=== PATIENT | male | born 1940 | race Caucasian/White ===

== ENCOUNTER → 2017-03-08 | Outpatient (CLI) | payer OTHER, BC ==
[~2017-03-08] MED LIST: ATOR10TA82 PO; COEN1CAP7 PO; CYAN100020 PO; FERR27TA5 PO; FLAX10007 PO; LOSA100T2 PO; MAGN250T22 PO; MULT-506 PO; POTA8CAP6 PO
[2017-03-08 07:58] LABS: BASO % 0.3 %; BASO ABS # 0.01 K/uL (0-0.2); COMPLETE YES; EOS % 4.2 %; HEMATOCRIT 39.9 % (42-52); IG% 0.3 %; LYMPH % 20.8 %; LYMPH ABS # 0.75 K/uL (1.2-3.4); MEAN CELL VOLUME 92.4 fL (80-100); MEAN CORPUSCULAR HEMOGLOBIN 30.6 pg (25-34); MEAN CORPUSCULAR HGB CONC 33.1 g/dl (32-36); MEAN PLATELET VOLUME 11.1 fL (7.4-10.4); MONO % 13.9 %; NEUT % 60.5 %; PLATELET COUNT 131 K/uL (130-400); RED BLOOD COUNT 4.32 M/uL (4.7-6.1)
[2017-03-08 08:29] LABS: ALT/SGPT 27 U/L (12-78); BLOOD UREA NITROGEN 23 mg/dl (7-18); BUN/CREATININE RATIO 23.9 (10-20); C-REACTIVE PROTEIN < 0.29 mg/dl (0-0.29); CARBON DIOXIDE 33 mmol/L (21-32); CHLORIDE 104 mmol/L (98-107); CHOLESTEROL 156 mg/dl (0-200); CREATININE 0.97 mg/dl (0.60-1.40); GLUCOSE 85 mg/dl (70-99); POTASSIUM 3.6 mmol/L (3.5-5.1); SODIUM 142 mmol/L (136-145); TRIGLYCERIDES 45 mg/dl (0-150); VERY LOW DENSITY LIPOPROT CALC 9 mg/dl
[2017-03-08 08:30] LABS: ALB/GLOB RATIO 1.3 (0.9-2); ALKALINE PHOSPHATASE 68 U/L (45-117); AST/SGOT 22 U/L (15-37); CHOLESTEROL/HDL RATIO 2.6; HDL CHOLESTEROL 61 mg/dl; LDL CHOLESTEROL CALCULATED 86 mg/dl
[2017-03-08 08:44] LABS: CALCIUM 8.9 mg/dl (8.5-10.1)
[2017-03-08 08:55] LABS: ESTIMATED AVERAGE GLUCOSE 114 mg/dl; HA1C FLAG Normal (Normal)
== END | disposition home or self-care (01) ==
LOC: C.LAB 06:40
PROVIDERS: ATTEND Family Medicine
DX: E78.5 Hyperlipidemia, unspecified (principal); Z12.5 Encounter for screening for malignant neoplasm of prostate; R73.02 Impaired glucose tolerance (oral)

== ENCOUNTER → 2017-03-26 | Day surgery (SDC) | payer OTHER, BC ==
[2017-03-20 08:21] VITALS: Ht 180.3 cm; Wt 72.7 kg
[~2017-03-26] VITALS: Ht 180.3 cm; Wt 72.7 kg
[~2017-03-26] MED LIST changes: +LIDOCAINE HCL 2% 2 ML VIAL (20MG/ML) ONE; +MIDAZOLAM HCL 1 MG/ML 2ML VIAL ONE; +ONDANSETRON INJ 2 MG/ML 2 ML VIAL ONE; +PROPOFOL IV EMULSION 10 MG/ML 20 ML VIAL IV ONE; +SODIUM CHLORIDE 0.9% 500ML 500 ML IV ONE
--- NOTE | 2017-03-26 11:13 | Endo History and Physical ---
History & Physical Date of Service: March 26, 2017. Chief Complaint: Screening Referring Physician: Luisito Truong History of Present Illness 76 yo CM who presents for screening colonoscopy. Past Surgical History Hx Cardiac Surgery: No Hx Internal Defibrillator: No Hx Pacemaker: No Hx Abdominal Surgery: No Hx of Implantable Prosthesis: No Hx Post-Op Nausea and Vomiting: No Hx Cancer Surgery: No Hx Thoracic Surgery: No Hx Orthopedic: No Hx Urinary Tract Surgery: No Family History IBD Social History Smoking Status: Never Smoker Hx Substance Use: No Hx Alcohol Use: No Allergies Coded Allergies: NO KNOWN DRUG ALLERGIES (Verified Allergy, Unknown, ., 03/20/17) Prednisone (Verified Allergy, Unknown, ELEVATED BP, HIVES, 03/20/17) Current Medications Reported Home Medications Medications Dose Route/Sig Max Daily Dose Days Date Category Multivitamin (Multivitamins) Tab 1 Tab PO QAM 03/20/17 Reported Coq10 (Coenzyme Q10 (Ubidecarenone)) 200 Mg Cap 1 Cap PO Q2D 03/20/17 Reported Magnesium (Magnesium Oxide) 250 Mg Tab 1 Tab PO 3XWK 03/20/17 Reported Flax Seed Oil (Flaxseed (Linseed)) 1,000 Mg Cap 1 Cap PO QAM 03/20/17 Reported Iron (Ferrous Gluconate) 27 Mg Tab 1 Tab PO QAM 03/20/17 Reported Vitamin B12 (Cyanocobalamin) 1,000 Mcg Tab 1 Tab PO QAM 03/20/17 Reported Klor-Con Ext Rel (Potassium Chloride) 8 Meq Tabcr 8 Meq PO Q2D 03/20/17 Reported Hyzaar (Losartan Potassium & Hydrochlo) 1 Tab Tab 1 Tab PO QAM 90 03/20/17 Reported Lipitor (Atorvastatin Calcium) 10 Mg Tab 10 Mg PO Q2D 03/20/17 Reported Vital Signs Weight (Kilograms): 72.73 Height (Feet): 5 Height (Inches): 11 Date Time Temp Pulse Resp B/P Pulse Ox O2 Delivery O2 Flow Rate FiO2 03/26/17 11:05 36.7 72 20 189/89 98 Room Air Physical Exam General Appearance: WD/WN, no apparent distress Respiratory/Chest: Auscultation: breath sounds normal Cardiovascular: Heart Auscultation: RRR Abdomen: Bowel Sounds: normal Inspection & Palpation: soft, non-distended, no tenderness, guarding & rebound Assessment and Plan Assessment: 76 yo CM who presents for screening colonoscopy. Plan: Proceed with colonoscopy.
--- NOTE | 2017-03-26 11:50 | Discharge Instructions ---
Endoscopy Patient Instructions Date / Procedure(s) Performed March 26, 2017. Colonoscopy Allergy Information Coded Allergies: NO KNOWN DRUG ALLERGIES (Verified Allergy, Unknown, ., 03/20/17) Prednisone (Verified Allergy, Unknown, ELEVATED BP, HIVES, 03/20/17) Discharge Date / Findings March 26, 2017. Diverticulosis Internal hemorrhoids Medication Instructions OK to resume all medications today as prescribed Reported Home Medications Medications Dose Route/Sig Max Daily Dose Days Date Category Multivitamin (Multivitamins) Tab 1 Tab PO QAM 03/20/17 Reported Coq10 (Coenzyme Q10 (Ubidecarenone)) 200 Mg Cap 1 Cap PO Q2D 03/20/17 Reported Magnesium (Magnesium Oxide) 250 Mg Tab 1 Tab PO 3XWK 03/20/17 Reported Flax Seed Oil (Flaxseed (Linseed)) 1,000 Mg Cap 1 Cap PO QAM 03/20/17 Reported Iron (Ferrous Gluconate) 27 Mg Tab 1 Tab PO QAM 03/20/17 Reported Vitamin B12 (Cyanocobalamin) 1,000 Mcg Tab 1 Tab PO QAM 03/20/17 Reported Klor-Con Ext Rel (Potassium Chloride) 8 Meq Tabcr 8 Meq PO Q2D 03/20/17 Reported Hyzaar (Losartan Potassium & Hydrochlo) 1 Tab Tab 1 Tab PO QAM 90 03/20/17 Reported Lipitor (Atorvastatin Calcium) 10 Mg Tab 10 Mg PO Q2D 03/20/17 Reported Provider Instructions Activity Restrictions - No exercising or heavy lifting for 24 hours. - Do not drink alcohol the day of the procedure. - Do not drive a car or operate machinery until the day after the procedure. - Do not make any important decisions or sign important papers in 24 hours after the procedure. Following Day: - Return to full activity which may include returning to work/school. Diet Start your diet with liquids and light foods (jello, soup, juice, toast). Then eat your usual diet if not nauseated. Treatment For Common After Affects For mild abdominal pain, bloating, or excessive gas: - Rest - Eat lightly - Lie on right side Follow-Up Information Follow-up with Luisito Truong as scheduled Anesthesia Information What You Should Know You have had a procedure that required some medicine to reduce anxiety and discomfort. This treatment is called moderate sedation. After receiving the treatment, you may be sleepy, but you will be able to breathe on your own. The effects of the treatment may last for several hours. Follow these instructions along with Activity/Diet recommendations noted above: * Do NOT do anything where dizziness or clumsiness would be dangerous. * Rest quietly at home today, then you can be up and about tomorrow. * Have a responsible person stay with you the rest of today. * You may have had an I.V. today. If so, you may take the dressing off later today. Recommendations Call your doctor if: * Trouble breathing * Continuous vomiting for more than 24 hours * Temperature above 101 degrees * Severe abdominal pain or bloating * Pain not relieved by pain medicine ordered * There is increased drainage or redness from any incision * A large amount of rectal bleeding greater than 2-3 tablespoons. (If you had a polyp/s removed or have hemorrhoids, a small amount of blood - from the rectum is to be expected.) * You have any unanswered questions or concerns. IN THE EVENT OF A SERIOUS EMERGENCY, GO TO THE NEAREST EMERGENCY ROOM Your discharge instructions were prepared by provider Mono Cummings. Patient Instructions Signature Page Barrera Vasquez Patient (or Guardian) Signature/Date: I have read and understand the instructions given to me by my caregivers. Caregiver/RN/Doctor Signature/Date: The above-named patient and/or guardian has received patient instructions on this date. + Original Patient Signature Page (only) stays with chart. Please make copy for patient.
--- NOTE | 2017-03-26 12:11 | GI REPORT ---
Procedure Date: 03/26/2017 11:21 AM THIS REPORT HAS BEEN AMENDED Addendum Number: 1 Addendum Date: 03/26/2017 1:20:46 PM No specimens were obtained during this procedure, and therefore, no pathology is pending. No repeat colonoscopy secondary to patient's age and lack of adenomas. Procedure: Colonoscopy Indications: Screening for colorectal malignant neoplasm Medicines: Monitored Anesthesia Care Complications: No immediate complications. Estimated Blood Loss: Estimated blood loss: none. Procedure: Pre-Anesthesia Assessment: - Prior to the procedure, a History and Physical was performed, and patient medications and allergies were reviewed. The patient's tolerance of previous anesthesia was also reviewed. The risks and benefits of the procedure and the sedation options and risks were discussed with the patient. All questions were answered, and informed consent was obtained. Prior Anticoagulants: The patient has taken no previous anticoagulant or antiplatelet agents. ASA Grade Assessment: III - A patient with severe systemic disease. After reviewing the risks and benefits, the patient was deemed in satisfactory condition to undergo the procedure. After I obtained informed consent, the scope was passed under direct vision. Throughout the procedure, the patient's blood pressure, pulse, and oxygen saturations were monitored continuously. The Scope was introduced through the anus and advanced to the terminal ileum. The colonoscopy was performed without difficulty. The patient tolerated the procedure well. The quality of the bowel preparation was good. The terminal ileum, ileocecal valve, appendiceal orifice, and rectum were photographed. Findings: Multiple small-mouthed diverticula were found in the sigmoid colon. Non-bleeding internal hemorrhoids were found during retroflexion. The hemorrhoids were small. Impression: - Diverticulosis in the sigmoid colon. - Non-bleeding internal hemorrhoids. - No specimens collected. Recommendation: - Resume previous diet. - Continue present medications. - Repeat colonoscopy for surveillance based on pathology results. - Return to primary care physician as previously scheduled. Monoandreina Cummings, 03/26/2017 12:09:52 PM This report has been signed electronically. Note Initiated On: 03/26/2017 11:21 AM I attest to the content of the Intraoperative Record and orders documented therein, exceptions below Mono Carlson Emiliano, DO 03/26/2017 1:21:33 PM This report has been signed electronically.
[2017-03-26 12:40] VITALS: BP 123/62; PULSE 48; O2SAT 98
--- NOTE | 2017-03-26 12:54 | Anesthesiology Progress Note ---
Anesthesia Post Op Note Date & Time March 26, 2017 at 12:54 Vital Signs Vital Signs Past 12 Hours Date Time Temp Pulse Resp B/P Pulse Ox O2 Delivery O2 Flow Rate FiO2 03/26/17 12:25 51 20 105/52 98 Room Air 03/26/17 12:16 47 20 98/45 95 Room Air 03/26/17 12:12 56 20 90/46 95 Room Air 03/26/17 11:05 36.7 72 20 189/89 98 Room Air Notes Mental Status: alert / awake / arousable, participated in evaluation Pt Amnestic to Procedure: Yes Nausea / Vomiting: adequately controlled Pain: adequately controlled Airway Patency, RR, SpO2: stable & adequate BP & HR: stable & adequate Hydration State: stable & adequate Anesthetic Complications: no major complications apparent
== END | disposition home or self-care (01) ==
LOC: C.GI 10:34
PROVIDERS: ATTEND Internal Medicine
DX: Z12.11 Encounter for screening for malignant neoplasm of colon (principal); K57.30 Diverticulosis of large intestine without perforation or abscess without bleeding; K64.8 Other hemorrhoids

== ENCOUNTER → 2017-08-01 | Outpatient (CLI) | payer OTHER, BC ==
[~2017-08-01] MED LIST changes: -ATOR10TA82 PO; +ATOR10TA88 PO; -LIDOCAINE HCL 2% 2 ML VIAL (20MG/ML) ONE; -MIDAZOLAM HCL 1 MG/ML 2ML VIAL ONE; -ONDANSETRON INJ 2 MG/ML 2 ML VIAL ONE; -PROPOFOL IV EMULSION 10 MG/ML 20 ML VIAL IV ONE; -SODIUM CHLORIDE 0.9% 500ML 500 ML IV ONE
[2017-08-01 09:42] LABS: BASO % 0.4 %; BASO ABS # 0.02 K/uL (0-0.2); COMPLETE YES; EOS % 3.7 %; HEMATOCRIT 40.8 % (42-52); IG% 0.2 %; LYMPH % 18.3 %; LYMPH ABS # 0.95 K/uL (1.2-3.4); MEAN CELL VOLUME 90.5 fL (80-100); MEAN CORPUSCULAR HEMOGLOBIN 30.4 pg (25-34); MEAN CORPUSCULAR HGB CONC 33.6 g/dl (32-36); MEAN PLATELET VOLUME 11.8 fL (7.4-10.4); MONO % 13.7 %; NEUT % 63.7 %; PLATELET COUNT 191 K/uL (130-400); RED BLOOD COUNT 4.51 M/uL (4.7-6.1)
[2017-08-01 10:03] LABS: ALB/GLOB RATIO 1.1 (0.9-2); ALKALINE PHOSPHATASE 78 U/L (45-117); ALT/SGPT 23 U/L (12-78); AST/SGOT 17 U/L (15-37); BLOOD UREA NITROGEN 21 mg/dl (7-18); BUN/CREATININE RATIO 23.3 (10-20); CALCIUM 9.2 mg/dl (8.5-10.1); CARBON DIOXIDE 31 mmol/L (21-32); CHLORIDE 104 mmol/L (98-107); CHOLESTEROL 139 mg/dl (0-200); CREATININE 0.92 mg/dl (0.60-1.40); GLUCOSE 92 mg/dl (70-99); POTASSIUM 3.7 mmol/L (3.5-5.1); SODIUM 141 mmol/L (136-145); TRIGLYCERIDES 62 mg/dl (0-150); VERY LOW DENSITY LIPOPROT CALC 12 mg/dl
[2017-08-01 10:12] LABS: CHOLESTEROL/HDL RATIO 2.7; HDL CHOLESTEROL 51 mg/dl; LDL CHOLESTEROL CALCULATED 76 mg/dl; TOTAL IRON BINDING CAPACITY 286 mcg/dl (250-450); URIC ACID 2.1 mg/dl (2.6-7.2)
[2017-08-01 11:13] LABS: ESTIMATED AVERAGE GLUCOSE 117 mg/dl; HA1C FLAG Normal (Normal)
== END | disposition home or self-care (01) ==
LOC: C.LAB 07:00
PROVIDERS: ATTEND Family Medicine
DX: R73.09 Other abnormal glucose (principal); E55.9 Vitamin D deficiency, unspecified; D51.9 Vitamin B12 deficiency anemia, unspecified; E78.9 Disorder of lipoprotein metabolism, unspecified; R53.83 Other fatigue

== ENCOUNTER → 2018-02-13 | Outpatient (CLI) | payer OTHER, BC ==
[~2018-02-13] MED LIST changes: +ATOR10TA82 PO; -ATOR10TA88 PO
[2018-02-13 09:37] LABS: BASO % 0.4 %; BASO ABS # 0.02 K/uL (0-0.2); EOS % 4.8 %; EOS ABS # 0.22 K/uL (0-0.5); HEMATOCRIT 39.6 % (42-52); HEMOGLOBIN 13.4 g/dL (14.0-18.0); IG# 0.01 K/uL (0.00-0.02); LYMPH % 22.4 %; LYMPH ABS # 1.02 K/uL (1.2-3.4); MEAN CELL VOLUME 91.9 fL (80-100); MEAN CORPUSCULAR HEMOGLOBIN 31.1 pg (25-34); MEAN CORPUSCULAR HGB CONC 33.8 g/dl (32-36); MEAN PLATELET VOLUME 12.6 fL (7.4-10.4); MONO % 10.7 %; MONO ABS # 0.49 K/uL (0.11-0.59); NEUT % 61.5 %; PLATELET COUNT 131 K/uL (130-400); RED CELL DISTRIBUTION WIDTH CV 12.9 % (11.5-14.5); RED CELL DISTRIBUTION WIDTH SD 43.3 fL (36.4-46.3); WHITE BLOOD COUNT 4.56 K/uL (4.8-10.8)
[2018-02-13 09:55] LABS: HEMOGLOBIN A1C 5.7 % (4.5-5.6)
[2018-02-13 10:00] LABS: ALBUMIN 3.9 gm/dl (3.4-5.0); ALT/SGPT 33 U/L (12-78); AST/SGOT 22 U/L (15-37); BLOOD UREA NITROGEN 24 mg/dl (7-18); CARBON DIOXIDE 32 mmol/L (21-32); CHOLESTEROL 141 mg/dl (0-200); CREATININE 0.99 mg/dl (0.60-1.40); GLUCOSE 89 mg/dl (70-99); LDL CHOLESTEROL CALCULATED 71 mg/dl; POTASSIUM 3.7 mmol/L (3.5-5.1); SODIUM 137 mmol/L (136-145)
[2018-02-13 10:11] LABS: ALKALINE PHOSPHATASE 75 U/L (45-117); TRANSFERRIN 241 mg/dl (200-360); URIC ACID 2.2 mg/dl (2.6-7.2)
== END | disposition home or self-care (01) ==
LOC: C.LAB 07:11
PROVIDERS: ATTEND Family Medicine
DX: E88.81 Metabolic syndrome and other insulin resistance (principal); E55.9 Vitamin D deficiency, unspecified; D51.9 Vitamin B12 deficiency anemia, unspecified; E78.9 Disorder of lipoprotein metabolism, unspecified; R53.83 Other fatigue

== ENCOUNTER → 2018-06-10 | Outpatient (CLI) | payer OTHER, BC ==
--- NOTE | 2018-06-10 10:43 | DIAGNOSTIC IMAGING REPORT ---
MRI OF THE RIGHT KNEE WITHOUT CONTRAST CLINICAL HISTORY: Medial right knee pain. Evaluate for meniscal tear. COMPARISON STUDY: Right knee radiograph April 22, 2018. TECHNIQUE: Utilizing a 1.5 Liya magnet and dedicated coil, multiplanar, multiecho imaging of the right knee was performed without intravenous or intraarticular contrast. FINDINGS: Alignment of the right knee is anatomic. Extensor mechanism is intact. No marrow replacement is present. Note is made of a moderate to large right knee joint effusion. The cruciate and collateral ligaments are intact. There is mild intrasubstance signal within the posterior cruciate ligament. There is no full-thickness tear. No lateral meniscal tear is present. There is a complex tear of the body and posterior horn of the medial meniscus. This portion of the meniscus is diminutive. There is moderate chondrosis within the medial and patellofemoral compartments with mild chondrosis within the lateral compartment. IMPRESSION: 1. Complex tear of the body and posterior horn of the medial meniscus. 2. Moderate to large right knee joint effusion. 3. Moderate chondrosis within the medial and patellofemoral compartments of the right knee. 4. Mild intrasubstance signal within the posterior cruciate ligament which may reflect an old partial tear. No full-thickness tear. Electronically signed by: Andrew Correa M.D. 06/10/2018 10:41 AM Dictated Date/Time: 06/10/2018 10:36 AM
== END | disposition home or self-care (01) ==
LOC: C.MRI 09:42
PROVIDERS: ATTEND Orthopaedic Surgery
DX: S83.231A Complex tear of medial meniscus, current injury, right knee, initial encounter (principal); X58.XXXA Exposure to other specified factors, initial encounter; M25.461 Effusion, right knee; M25.561 Pain in right knee